=== PATIENT | male | born 1970 | race Two or more races ===

== ENCOUNTER 2023-12-28 11:08 | Observation (INO) | payer OTHER, SELFPAY ==
[2023-12-28] VITALS (38 sets, daily range): BP systolic 144–196; BP diastolic 62–95; PULSE 41–92; TEMP 36.4–36.6; O2SAT 96–100; BMI 23.0; BMI 20.4
--- NOTE | 2023-12-28 11:30 | ED_ITS ---
HPI - Nausea/Vomiting/Diarrhea General Chief complaint: Nausea/Vomiting/Diarrhea Stated complaint: WEAKNESS AND VOMITING Time Seen by Provider: 12/28/23 11:26 Source: patient and family Mode of arrival: Wheelchair History of Present Illness HPI Narrative: This patient is here complaining of onset of vomiting. It started approximately at 3:00 AM. Please. He is still vomiting here in the ER. 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 He is not taking any medication for. He gets his care at the [facility] in [place]. He has not had any diarrhea. He is not running a. He was going to go back to his home tomorrow until this all started today. He is not running a fever or here in the ER. He sees a little bit of blood mixed in with his vomiting. He does not have a history of gastric or peptic ulcers but he states he has a history of ulcerative colitis that he states is some type of autoimmune disease. Additionally he smokes marijuana on a daily basis. Related Data Home Medications ?Medication ?Instructions ?Recorded ?Confirmed gabapentin 100 mg capsule 500 mg PO DAILY 12/28/23 12/28/23 methocarbamol 500 mg tablet 750 mg PO DAILY 12/28/23 12/28/23 pantoprazole 40 mg tablet,delayed 40 mg PO DAILY 12/28/23 12/28/23 release (Protonix) ropinirole 1 mg tablet 1 mg PO DAILY 12/28/23 12/28/23 Allergies Allergy/AdvReac Type Severity Reaction Status Date / Time tramadol [From Ultram] Allergy Seizure Verified 12/28/23 11:19 steroids Allergy Fatigued Uncoded 12/28/23 11:19 Exam Narrative Exam Narrative: Awake alert dry heaving and having active vomiting. Blood pressure is modestly elevated. He is afebrile. He does not appear chronically ill. His hydration status appears reasonable. He does not have any scleral icterus or evidence of pallor. Examination abdomen he is got continued dry heaving throughout his entire stay here making examination very difficult. Most of the material is brownish color with scant amount of reddish blood. There is no blood clots and this is not consistent with a Ojsy-Gomez tear or active GI bleeding. His lungs are clear he has no respiratory distress. Heart rate and rhythm are normal. Pulse oximetry is normal. Cognitive function and neurological examination are also normal. With the complexity of his situation I felt to be present and prudent rather to go ahead and do a CT scan. We immediately will request old medical records from the [place] facility and his [facility]. Constitutional Vital Signs, click to edit/add: Last Vital Signs Temp 97.5 F L 12/28/23 11:14 Pulse 45 L 12/28/23 11:14 Resp 16 12/28/23 11:14 BP 182/90 H 12/28/23 11:25 Pulse Ox 97 12/28/23 11:14 O2 Del Method Room Air 12/28/23 11:14 Course Vital Signs Vital signs: Vital Signs Temperature 97.5 F L 12/28/23 11:14 Pulse Rate 45 L 12/28/23 11:14 Respiratory Rate 16 12/28/23 11:14 Blood Pressure 196/93 H 12/28/23 11:14 Pulse Oximetry 97 12/28/23 11:14 Oxygen Delivery Method Room Air 12/28/23 11:14 Temperature 97.5 F L 12/28/23 11:14 Pulse Rate 45 L 12/28/23 11:14 Respiratory Rate 16 12/28/23 11:14 Blood Pressure 182/90 H 12/28/23 11:25 Pulse Oximetry 97 12/28/23 11:14 Oxygen Delivery Method Room Air 12/28/23 11:14 MDM - Nausea/Vomiting/Diarrhea MDM Narrative Medical decision making narrative: This patient was given several liters of IV fluids, he says that Zofran did not work so he was given Phenergan. The Phenergan dose did not really help him a whole lot. The urine toxicology screen comes back positive for marijuana consistent with his daily use so it is highly likely that he has cyclic vomiting. The white blood cell count is elevated but his CT scan is negative for any acute findings. I am hesitant to administer haloperidol because of likelihood of interaction with his other medications. I have spoken to the on- call hospitalist and told him the situation that we have and he is glad to admit him to the hospital until we can to stabilize. The most likely diagnosis is not pancreatitis or bowel obstruction. There is an outside possibility this is colitis but he is not having any diarrhea. This is probably cyclic vomiting with dehydration Lab Data Labs: Lab Results 12/28/23 12/28/23 12/28/23 Range/Units 11:40 12:05 13:45 WBC 24.0 H (4.0-11.0) 10^3/uL RBC 5.14 (4.70-6.10) 10^6/uL Hgb 16.7 (14.0-18.0) g/dL Hct 47.8 (42.0-54.0) % MCV 93.0 (80.0-94.0) fL MCH 32.5 (25.9-34.0) pg MCHC 34.9 (29.9-35.2) g/dL RDW 12.6 (11.0-15.0) % Plt Count 316 (150-450) 10^3/uL MPV 11.6 (9.5-13.5) fL Seg Neuts % (Manual) 84.0 H (43.0-75.0) Lymphocytes % (Manual) 10.0 L (20.5-60.0) % Monocytes % (Manual) 5.0 (1.7-12.0) % Eosinophils % (Manual) 0.0 L (0.9-7.0) % Basophils % (Manual) 1.0 (0.2-2.0) % Neutrophils # (Manual) 20.16 H (1.4-6.5) 10^3/uL Lymphocytes # (Manual) 2.40 (1.20-3.80) 10^3/uL Monocytes # (Manual) 1.20 H (0.30-0.80) 10^3/uL Eosinophils # (Manual) 0.00 (0.00-0.70) 10^3/uL Basophils # (Manual) 0.24 H (0.00-0.10) 10^3/uL Sodium 137 (136-145) mmol/L Potassium 4.0 (3.5-5.1) mmol/L Chloride 101 (98-107) mmol/L Carbon Dioxide 24.7 (21.0-32.0) mmol/L Anion Gap 15.3 BUN 29.0 H (7.0-18.0) mg/dL Creatinine 1.39 H (0.70-1.30) mg/dL Est GFR ( Amer) >60 (>=60) Est GFR (Non-Af Amer) 53 L (>=60) BUN/Creatinine Ratio 20.9 Glucose 220 H (74-106) mg/dL Lactate 2.8 H* (0.4-2.0) mmol/L Calcium 10.1 (8.5-10.1) mg/dL Total Bilirubin 0.6 (0.2-1.0) mg/dL AST 36 (15-37) U/L ALT 84 H (16-63) U/L Alkaline Phosphatase 155 H (46-116) U/L Total Protein 9.1 H (6.4-8.2) g/dL Albumin 4.7 (3.4-5.0) g/dL Globulin 4.4 g/dL Albumin/Globulin Ratio 1.1 Lipase 17.0 (16.0-77.0) U/L Urine Color Yellow (YELLOW) Urine Clarity Clear (CLEAR) Urine pH 6.5 (5.0-9.0) Ur Specific [place] 1.010 (1.005-1.025) Urine Protein 30 A (NEG/TRACE) mg/dL Urine Glucose (UA) Negative (NEGATIVE) mg/dL Urine Ketones Negative (NEGATIVE) mg/dL Urine Occult Blood Negative (NEGATIVE) Urine Nitrite Negative (NEGATIVE) Urine Bilirubin Negative (NEGATIVE) Urine Urobilinogen 0.2 (0.2-1.0) EU/dL Ur Leukocyte Esterase Negative (NEGATIVE) Urine RBC 0-2 (0-2) #/HPF Urine WBC 0-2 A (NONE SEEN) #/HPF Ur Squamous Epith Cells Rare (NONE/RARE) #/LPF Urine Crystals None seen (None Seen) #/HPF Urine Bacteria Trace A (NONE SEEN) #/HPF Urine Casts None seen (NONE SEEN) #/LPF Urine Mucus Trace A (NONE SEEN) Ur Culture Indicated? No Urine Opiates Screen Negative (NEGATIVE) Ur Buprenorphine Scrn Negative (NEGATIVE) Ur Oxycodone Screen Negative (NEGATIVE) Urine Methadone Screen Negative (NEGATIVE) Ur Barbiturates Screen Negative (NEGATIVE) U Tricyclic Antidepress Negative (NEGATIVE) Ur Phencyclidine Scrn Negative (NEGATIVE) Ur Amphetamines Screen Negative (NEGATIVE) U Methamphetamines Scrn Negative (NEGATIVE) U Benzodiazepines Scrn Negative (NEGATIVE) Urine Cocaine Screen Negative (NEGATIVE) U Cannabinoids Screen Positive A (NEGATIVE) Discharge Plan Discharge Chief Complaint: Nausea/Vomiting/Diarrhea Clinical Impression: Cyclic vomiting syndrome, Dehydration Patient Disposition: Admitted as Observation Time of Disposition Decision: 15:05 Prescriptions / Home Meds: No Action gabapentin 100 mg capsule 500 mg PO DAILY methocarbamol 500 mg tablet 750 mg PO DAILY pantoprazole [Protonix] 40 mg tablet,delayed release (DR/EC) 40 mg PO DAILY ropinirole 1 mg tablet 1 mg PO DAILY Print Language: Albanian Referrals: Physician,Non-Staff, MD [Primary Care Provider] - 1 week
--- NOTE | 2023-12-28 11:32 | CT_ITS ---
[address] [address] Patient Name: JESSICA SERRATO MRN: [id number] date: 1970 Sex: M Assigned Patient Location: ER Current Patient Location: Accession/Order Number: [id number] Exam Date: 12/28/2023 12:21 Report Date: 12/28/2023 13:09 At the request of: ADRIAN MILLER Procedure: CT abdomen pelvis w con EXAMINATION: CT abdomen pelvis w con HISTORY: Abdominal pain vomiting/ulcerative colitis COMPARISON: No relevant comparison available. TECHNIQUE: CT images were created with IV contrast. Axial, Coronal, and Sagittal images. Dose reduction techniques were achieved by using automated exposure control and/or adjustment of mA and/or kV according to patient size and/or use of iterative reconstruction technique. FINDINGS: LUNG BASES: No visible pulmonary or pleural disease. LIVER: No enlargement, atrophy, abnormal density, or significant focal lesion. BILIARY: No visible dilatation or calcification. PANCREAS: No lesion, fluid collection, ductal dilatation, or atrophy. SPLEEN: No enlargement or focal lesion. ADRENALS: No mass or enlargement. KIDNEYS: Bilateral hypodensities possibly cysts. No hydronephrosis or obstructing nephrolithiasis BOWEL/MESENTERY: No visible mass, obstruction, or bowel wall thickening. AORTA/VASCULAR: No aneurysm or dissection. RETROPERITONEUM: No mass or adenopathy. LYMPH NODES: No adenopathy. URINARY BLADDER: No visible focal wall thickening, lesion, or calculus. PELVIC ORGANS: No visible mass. Pelvic organs appropriate for patient age. ABDOMINAL WALL: No mass or hernia. BONES: No bony lesion or fracture. Moderate degenerative changes L4-5 OTHER: Negative. CT/CT abdomen pelvis w con IMPRESSION: No acute intraperitoneal abnormality. Electronically authenticated by: BONNIE LI Date: 12/28/2023 13:09
[2023-12-28] MEDS: PROMETHAZINE HCL 25 MG in 0.9 % SODIUM CHLORIDE 50 ML 204 MG IV (11:51)
[2023-12-28] MEDS: FENTANYL CITRATE/PF 100 MCG/2 ML VIAL 50 MCG IV (11:51)
[2023-12-28] MEDS: 0.9 % SODIUM CHLORIDE 1,000 ML 999 ML IV (11:52)
[2023-12-28 12:13] LABS: Hematocrit 47.8 % (42.0-54.0); Hemoglobin 16.7 g/dL (14.0-18.0); Mean Corpuscular HGB Conc 34.9 g/dL (29.9-35.2); Mean Corpuscular Hemoglobin 32.5 pg (25.9-34.0); Mean Platelet Volume 11.6 fL (9.5-13.5); Platelet Count 316 10^3/uL (150-450); Red Blood Count 5.14 10^6/uL (4.70-6.10); Red Cell Distribution Width 12.6 % (11.0-15.0)
[2023-12-28 12:40] LABS: Lactate/Lactic Acid 2.8 mmol/L (0.4-2.0)
[2023-12-28 12:41] LABS: Alanine Aminotransferase 84 U/L (16-63); Albumin Globulin Ratio 1.1; Albumin Level 4.7 g/dL (3.4-5.0); Alkaline Phosphatase 155 U/L (46-116); Anion Gap 15.3; Aspartate Amino Transferase 36 U/L (15-37); BUN Creatinine Ratio 20.9; Bilirubin Total 0.6 mg/dL (0.2-1.0); Calcium 10.1 mg/dL (8.5-10.1); Carbon Dioxide 24.7 mmol/L (21.0-32.0); Chloride 101 mmol/L (98-107); Estimated GFR (African America >60 (>=60); Estimated GFR (Non-African Ame 53 (>=60); Globulin 4.4 g/dL; Glucose 220 mg/dL (74-106); Sodium 137 mmol/L (136-145); Total Protein 9.1 g/dL (6.4-8.2)
[2023-12-28 13:36] LABS: Basophils Abs Manual 0.24 10^3/uL (0.00-0.10); Segmented Neut Absolute Manual 20.16 10^3/uL (1.4-6.5)
[2023-12-28] MEDS: 0.9 % SODIUM CHLORIDE 1,000 ML 1000 ML IV (13:49)
[2023-12-28 13:53] LABS: Bilirubin Urine NEGATIVE (NEGATIVE); Blood Urine NEGATIVE (NEGATIVE); Clarity Urine CLEAR (CLEAR); Color Urine YELLOW (YELLOW); Glucose Urine UA NEGATIVE (NEGATIVE); Ketones Urine NEGATIVE (NEGATIVE); Leukocyte Esterase Urine NEGATIVE (NEGATIVE); Nitrite Urine NEGATIVE (NEGATIVE); Protein Urine 30 mg/dL (NEG/TRACE); Urobilinogen Urine 0.2 EU/dL (0.2-1.0); pH Urine 6.5 (5.0-9.0)
[2023-12-28 14:13] LABS: Urine Microscopic Indicated YES
[2023-12-28 14:16] LABS: Amphetamine Screen Urine NEGATIVE (NEGATIVE); Barbiturates Screen Urine NEGATIVE (NEGATIVE); Benzodiazepines Screen Urine NEGATIVE (NEGATIVE); Buprenorphine Screen Urine NEGATIVE (NEGATIVE); Cannabinoid Screen Urine POSITIVE (NEGATIVE); Cocaine Screen Urine NEGATIVE (NEGATIVE); Methadone Screen Urine NEGATIVE (NEGATIVE); Methamphetamines Screen Urine NEGATIVE (NEGATIVE); Opiate Screen Urine NEGATIVE (NEGATIVE); Oxycodone Screen Urine NEGATIVE (NEGATIVE); Phencyclidine Screen Urine NEGATIVE (NEGATIVE); Tricyclic Antidepressant Urine NEGATIVE (NEGATIVE)
[2023-12-28 14:19] LABS: Bacteria Urine TRACE #/HPF (NONE SEEN); Mucus Urine TRACE (NONE SEEN); RBC Urine 0-2 #/HPF (0-2); Squamous Epithelial Cell Urine RARE #/LPF (NONE/RARE); WBC Urine 0-2 #/HPF (NONE SEEN)
[2023-12-28 14:20] LABS: Cast Seen? NONE SEEN #/LPF (NONE SEEN); Crystals Seen? None Seen #/HPF (None Seen); Urine Culture Indicated NO
--- NOTE | 2023-12-28 15:00 | ECG_ITS ---
[facility] Test Date: 2023-12-28 Pat Name: JESSICA SERRATO Department: Room: - Gender: Male [employer]: : 1970 Requested By: Order Number: [id number] Reading MD: ANKITA MEYER Measurements Intervals [place] Rate: 51 P: 83 WI: 150 QRS: 0 QRSD: 98 T: 43 QT: 442 QTc: 419 Interpretive Statements 1100 Sinus rhythm 1102 Sinus arrhythmia 0102 ARTIFACT PRESENT 9110 normal ECG No previous ECG available for comparison Electronically Signed On 12-28-2023 23:08:56 EDT by ANKITA MEYER
[2023-12-28 15:21] LABS: Lactate/Lactic Acid 1.9 mmol/L (0.4-2.0)
--- NOTE | 2023-12-28 16:27 | PC.NURSE ---
[address] heart monitor for pt, pt became aggitated and yelling that hes going to shower. engineering technical writer educated pt that the physician ordered heart monitor to be able to provide proper care. pt continues to refuse.
[2023-12-28] MEDS: ENOXAPARIN SODIUM 40 MG/0.4 ML SYRINGE SUBQ (16:56)
[2023-12-28] MEDS: LACTATED RINGER'S SOLUTION 1,000 ML 125 ML IV (16:56)
[2023-12-28] MEDS: HALOPERIDOL LACTATE 5 MG/ML VIAL IV (16:58)
[2023-12-28] MEDS: HYDRALAZINE HCL 20 MG/ML VIAL 10 MG IVP (17:08)
[2023-12-28] MEDS: ROPINIROLE HCL 1 MG TABLET PO (21:12)
[2023-12-28] MEDS: PANTOPRAZOLE SODIUM 40 MG VIAL IV (21:12)
[2023-12-29] MEDS: LACTATED RINGER'S SOLUTION 1,000 ML 125 ML IV ×2 (01:00→08:19)
[2023-12-29 05:18] VITALS: BP 135/62; PULSE 62; TEMP 36.8; O2SAT 93
[2023-12-29 06:16] LABS: Basophils Absolute Auto 0.1 10^3/uL (0.0-0.1); Basophils Percent Auto 0.4 % (0.2-2.0); Hemoglobin 13.6 g/dL (14.0-18.0); Immature Granulocytes Abs Auto 0.15 10^3/uL (0.00-0.03); Immature Granulocytes Pct Auto 0.7 % (0.0-0.5); Lymphocytes Absolute Auto 2.1 10^3/uL (1.2-3.8); Lymphocytes Percent Auto 10.4 % (20.5-60.0); Mean Corpuscular Hemoglobin 31.9 pg (25.9-34.0); Mean Corpuscular Volume 93.7 fL (80.0-94.0); Mean Platelet Volume 12.3 fL (9.5-13.5); Monocytes Percent Auto 9.7 % (1.7-12.0); Neutrophils Absolute Auto 16.2 10^3/uL (1.4-6.5); Neutrophils Percent Auto 78.8 % (43.0-75.0); Platelet Count 222 10^3/uL (150-450); Red Blood Count 4.27 10^6/uL (4.70-6.10); Red Cell Distribution Width 12.9 % (11.0-15.0); White Blood Count 20.5 10^3/uL (4.0-11.0)
[2023-12-29 06:32] LABS: Alanine Aminotransferase 47 U/L (16-63); Albumin Level 3.5 g/dL (3.4-5.0); Alkaline Phosphatase 113 U/L (46-116); Anion Gap 11.2; Aspartate Amino Transferase 16 U/L (15-37); Bilirubin Total 0.6 mg/dL (0.2-1.0); Calcium 8.9 mg/dL (8.5-10.1); Carbon Dioxide 26.2 mmol/L (21.0-32.0); Chloride 102 mmol/L (98-107); Estimated GFR (African America >60 (>=60); Estimated GFR (Non-African Ame >60 (>=60); Globulin 3.5 g/dL; Glucose 130 mg/dL (74-106); Potassium 3.4 mmol/L (3.5-5.1); Sodium 136 mmol/L (136-145)
[2023-12-29 07:33] VITALS: BP 149/63; PULSE 60; TEMP 36.6; O2SAT 95
[2023-12-29 08:26] VITALS: PULSE 60
[2023-12-29 08:57] VITALS: PULSE 60
--- NOTE | 2023-12-29 10:18 | P.HP_ITS ---
HPI H&P: HPI History of Present Illness Chief complaint: WEAKNESS AND VOMITING DEHYDRATION CYCLIC VOMITING Narrative: HPI and Hospital Course: 53-year-old male presented to ER last night for intractable nausea, vomiting and mild epigastric abdominal pain. He reports he was in his usual state of health until last afternoon when he developed sudden onset gastrointestinal symptoms. He thinks his symptoms started after he drank some wine. He has history of selective IgA deficiency. He has prior history of similar symptoms in the past that occur sporadically and does not believe his symptoms are related to his cannabis abuse. He was noted to have leukocytosis, transaminitis on ER workup and admitted for observation for intractable nausea and vomiting. Patient was treated with IV fluids, antiemetics overnight and feels well today. He tolerated regular diet this morning and denies nausea, vomiting, abdominal pain. He was also given Haldol upon arrival yesterday with a working diagnosis of cyclic vomiting syndrome/cannabis hyperemesis syndrome. Opioid HPI Opioid Management Most Recent Pain and Opioid Data: Last Pain Scale 0 12/28/23 18:17 Last Pain Assessment 12/29/23 10:08 Last MAR Pain Assessment 12/28/23 11:51 Last ORT Total Score 4 12/28/23 15:58 Last ORT Risk Category Moderate Risk 12/28/23 15:58 Ur Phencyclidine Scrn Negative (NEGATIVE) 12/28/23 13:45 Review of Systems ROS Status of ROS 10 or more systems reviewed and unremark able except as noted in history and below [facility] Medical History (Updated 12/29/23 @ 10:23 by Shaikh Julissa MD) RLS (restless legs syndrome) ?G25.81 - Restless legs syndrome (ICD-10) IgA deficiency ?D80.2 - Selective deficiency of immunoglobulin A [IgA] (ICD-10) Arthropathy of right knee ?M17.11 - Unilateral primary osteoarthritis, right knee (ICD-10) Surgical History (Updated 12/28/23 @ 15:56 by Hanna Maloney LPN) H/O laminectomy ?Z98.890 - Other specified postprocedural states (ICD-10) Social History (Updated 12/28/23 @ 15:55 by Hanna Maloney LPN) Within the past year, how often did you have a drink containing alcohol: never Within the past year, how often did you have six or more drinks on one occasion: never Score interpretation: A score less than 4 is consistent with normal alcohol consumption. Smoking status: Former smoker Second hand tobacco smoke exposure: No Non-prescribed substance use: cannabis (any form) Known occupational exposures/hazards: No Highest level of school completed/degree received: some college, no degree Are you now , , , , never or living with a partner: In a typical week, how many times do you talk on the telephone with family, friends, or neighbors: 3 or more times per week How often do you get together with friends or relatives: 3 or more times per week How often do you attend roman catholic or mosque services: never Do you belong to any clubs or organizations such as roman catholic groups unions, [employer] or athletic groups, or school groups: no Total score: 2 Score interpretation: A score of greater than or equal to 2 [address] [facility] [address] level of social isolation. Little interest or pleasure in doing things: not at all Feeling down, depressed, or hopeless: not at all Feel stressed/tense/nervous/anxious/difficulty sleeping: not at all Due to disability, difficulty making decisions: No Do you think of yourself as: straight/heterosexual Gender Identity: male Meds Home Medications and Allergies Home Medications ?Medication ?Instructions ?Recorded ?Confirmed ?Type gabapentin 800 mg tablet 800 mg PO TID PRN nerve pain 12/28/23 12/28/23 History methocarbamol 750 mg tablet 750 mg PO BID PRN muscle spasm 12/28/23 12/28/23 History pantoprazole 40 mg tablet,delayed 40 mg PO .once daily 12/28/23 12/28/23 History release ropinirole 1 mg tablet 1 mg PO DAILY 12/28/23 12/28/23 History Allergies Allergy/AdvReac Type Severity Reaction Status Date / Time tramadol [From Ultram] Allergy Seizure Verified 12/28/23 11:19 steroids Allergy Fatigued Uncoded 12/28/23 11:19 Exam Constitutional Vital Signs, click to edit/add: Last Vital Signs Temp 98 F 12/29/23 07:33 Pulse 60 12/29/23 08:57 Resp 18 12/29/23 07:33 BP 149/63 H 12/29/23 07:33 Pulse Ox 95 12/29/23 07:33 O2 Del Method Room Air 12/29/23 07:33 Results Labs Labs: Short CBC 12/28/23 12/29/23 Range/Units 12:05 05:22 WBC 24.0 H 20.5 H (4.0-11.0) 10^3/uL Hgb 16.7 13.6 L (14.0-18.0) g/dL Hct 47.8 40.0 L (42.0-54.0) % Plt Count 316 222 (150-450) 10^3/uL BMP 12/28/23 12/29/23 12:05 05:22 Sodium 137 136 Potassium 4.0 3.4 L Chloride 101 102 Carbon Dioxide 24.7 26.2 BUN 29.0 H 16.0 Creatinine 1.39 H 1.00 Glucose 220 H 130 H Calcium 10.1 8.9 Liver Function 12/28/23 12/29/23 Range/Units 12:05 05:22 Total Bilirubin 0.6 0.6 (0.2-1.0) mg/dL AST 36 16 (15-37) U/L ALT 84 H 47 (16-63) U/L Alkaline Phosphatase 155 H 113 (46-116) U/L Albumin 4.7 3.5 (3.4-5.0) g/dL Urine 12/28/23 Range/Units 13:45 Urine Color Yellow (YELLOW) Urine Clarity Clear (CLEAR) Urine pH 6.5 (5.0-9.0) Ur Specific [place] 1.010 (1.005-1.025) Urine Protein 30 A (NEG/TRACE) mg/dL Urine Glucose (UA) Negative (NEGATIVE) mg/dL Assessment and Plan Assessment and Plan (1) Cyclic vomiting syndrome: Assessment and Plan: Likely cyclic vomiting syndrome. Symptoms improved with conservative measures. Patient is stable for discharge. Tolerating oral diet. (2) Leukocytosis: Assessment and Plan: Likely due to dehydration and reactive in nature. No evidence of infection on diagnostic workup. Improved with IV hydration. Recommend repeating CBC in 1 week before seeing primary care physician Qualifiers: Leukocytosis type: leukemoid reaction Qualified Code(s): D72.823 - Leukemoid reaction (3) Transaminitis: Assessment and Plan: Resolved. Likely due to dehydration. Monitor (4) Lactic acid acidosis: Assessment and Plan: Due to dehydration. Resolved with IV hydration. (5) Dehydration: Assessment and Plan: Due to intractable nausea and vomiting and poor oral intake. Improved with IV hydration. Able to tolerate oral diet now. Stable for discharge. (6) RLS (restless legs syndrome): Assessment and Plan: Continue with Requip. Monitor. Plan Medically stable for discharge. Advised and counseled on cannabis abuse. Will discharge on oral Zofran as needed. Recommend repeating CBC in 1 week. Instructed the patient to follow-up with PCP in 1 to 2 weeks upon his return to [place].
--- NOTE | 2023-12-29 10:36 | CM.NOTE ---
Rounds made with Dr. Costa. Dr Costa discussed plan of care and need for Warner [facility] [place] [facility]. Warner verbalized understanding. Warner states feeling good and ate all of breakfast. States no nausea or vomiting and ready for discharge. Plan is for discharge today.
[2023-12-29 11:01] VITALS: BP 149/63; PULSE 60; TEMP 36.7; O2SAT 95
--- NOTE | 2023-12-30 13:35 | CM.DCFOLLOWU ---
1st attempt 12/30/23
== END 2023-12-29 11:35 | disposition home or self-care (01) ==
LOC: ER 15:05 → MS 15:41
PROVIDERS: Admitting Provider Internal Medicine; Emergency Provider Emergency Medicine Emergency Medical Services; Visit Provider Internal Medicine
DX: R11.15 Cyclical vomiting syndrome unrelated to migraine (principal); D72.823 Leukemoid reaction; R74.01 Elevation of levels of liver transaminase levels; E86.0 Dehydration; E87.20 Acidosis, unspecified; G25.81 Restless legs syndrome; F12.90 Cannabis use, unspecified, uncomplicated; Z79.899 Other long term (current) drug therapy; Z87.891 Personal history of nicotine dependence
CPT/HCPCS: 36415; 74177; 80053; 80307; 81001; 83605; 83690; 85007; 85025; 85027; 93005; 94761; 96361; 96365; 96372; 96375; 99285; G0378; J0360; J1630; J1650; J2250; J3010; Q9967